=== PATIENT | female | born 1975 | race Caucasian/White ===

== ENCOUNTER 2016-03-20 13:02 | Emergency (ER) | payer OTHER ==
[2016-03-20 13:07] VITALS: BP 118/87; PULSE 98; RESP 14; TEMP 97.9; O2SAT 99
--- NOTE | 2016-03-20 13:29 | EDPHY ---
H & P Stated Complaint: R hip pain from fall on 03/17 Time Seen by Provider: 03/20/16 13:23 HPI/ROS: CHIEF COMPLAINT: Hip pain HISTORY OF PRESENT ILLNESS: Patient is a 40-year-old female who fell off of her bed 3 days ago and landed on her night stand. Her bed is about 4 feet off of the ground. She has bruising to her right hip and pain to her right inguinal area as well as bruising and pain to her right ankle. She has been ambulatory. She did not think that she could have hurt that bad but her pain is continued for the last 3 days. She states that she was not able to sleep at all last night because of pain. She does not take any blood thinners. REVIEW OF SYSTEMS: Constitutional: denies: chills, fever, recent illness, recent injury EENTM: denies: blurred vision, double vision, nose congestion Respiratory: denies: cough, shortness of breath Cardiac: denies: chest pain, irregular heart rate, lightheadedness, palpitations Gastrointestinal/Abdominal: denies: abdominal pain, diarrhea, nausea, vomiting, blood streaked stools Genitourinary: denies: dysuria, frequency, hematuria, pain Musculoskeletal: See HPI Skin: denies: lesions, rash, jaundice, bruising Neurological: denies: headache, numbness, paresthesia, tingling, dizziness, weakness Hematologic/Lymphatic: denies: blood clots, easy bleeding, easy bruising Immunologic/allergic: denies: HIV/AIDS, transplant EXAM: GENERAL: Well-appearing, well-nourished and in no acute distress. HEAD: Atraumatic, normocephalic. EYES: Pupils equal round and reactive to light, extraocular movements intact, sclera anicteric, conjunctiva are normal. ENT: TMs normal, nares patent, oropharynx clear without exudates. Moist mucous membranes. NECK: Normal range of motion, supple without lymphadenopathy or JVD. LUNGS: Breath sounds clear to auscultation bilaterally and equal. No wheezes rales or rhonchi. HEART: Regular rate and rhythm without murmurs, rubs or gallops. ABDOMEN: Soft, nontender, normoactive bowel sounds. No guarding, no rebound. No masses appreciated. BACK: No CVA tenderness, no spinal tenderness, step-offs or deformities EXTREMITIES: Pain to right inguinal area, bruising to right lateral hip, no deformity or shortening. Pain, bruising and swelling to right ankle. No bony tenderness. Tenderness to dorsal foot. NEUROLOGICAL: Cranial nerves II through XII grossly intact. Normal speech, normal gait. 5/5 strength, normal movement in all extremities, normal sensation PSYCH: Normal mood, normal affect. SKIN: Warm, dry, normal turgor, no visible rashes or lesions. Source: Patient Exam Limitations: No limitations - Personal History LMP (Females 10-55): 8-14 Days Ago Current Tetanus/Diphtheria Vaccine: Yes Current Tetanus Diphtheria and Acellular Pertussis (TDAP): Yes - Medical/Surgical History Hx Asthma: No Hx Chronic Respiratory Disease: No Hx Diabetes: No Hx Cardiac Disease: No Hx Renal Disease: No Hx Cirrhosis: No Hx Alcoholism: No Hx HIV/AIDS: No Hx Splenectomy or Spleen Trauma: No Other PMH: ectopic - Family History Significant Family History: No pertinent family hx - Social History Smoking Status: Former smoker Alcohol Use: Sober Drug Use: None Constitutional: Initial Vital Signs Temperature (C) 36.6 C 03/20/16 13:05 Heart Rate 98 03/20/16 13:05 Respiratory Rate 14 03/20/16 13:05 Blood Pressure 118/87 H 03/20/16 13:05 O2 Sat (%) 99 03/20/16 13:05 O2 Delivery Mode Room Air Allergies/Adverse Reactions: No Known Allergies Allergy (Unverified 03/20/16 13:07) Home Medications: Medication Instructions Recorded oxyCODONE/APAP 5/325 [Percocet 1 - 2 tab PO Q4H PRN #20 tab 03/20/16 5/325 (*)] Medical Decision Making - Diagnostics Imaging: X-ray: Foot x-ray was obtained. I viewed the images myself on the PACS system. My interpretation of the images is: Possible acute foot avulsion fracture. The radiologist interpretation is avulsion fracture. X-ray: Hip x-ray was obtained. I viewed the images myself on the PACS system. My interpretation of the images is: Negative. The radiologist interpretation is negative. ED Course/Re-evaluation: 2:30 p.m. we discussed the x-ray results. The patient is relieved. We have placed her in a cm some boot and I will have her follow up with Podiatry or Orthopedics. She is happy with this plan. We discussed further care and pain management. She is requesting Percocet. Additional verbal discharge instructions given. Differential Diagnosis: Partial list of the Differential diagnosis considered include but were not limited to; foot fracture, hematoma, ankle sprain, pelvic fracture, hip fracture and although unlikely based on the history and physical exam, I also considered DVT, infection. I discussed these differential diagnoses and the plan with the patient as well as the usual and expected course. The patient understands that the diagnosis is provisional and that in medicine we are not always correct and that further workup is often warranted. Usual and customary warnings were given. All of the patient's questions were answered. The patient was instructed to return to the emergency department should the symptoms at all worsen or return, otherwise to followup with the physician as we discussed. - Data Points Medications Given: Discontinued Medications Hydromorphone HCl (Dilaudid) 1 mg IVP EDNOW ONE Stop: 03/20/16 14:06 Last Admin: 03/20/16 14:06 Dose: 1 mg Departure - Departure Disposition: Home, Routine, Self-Care Clinical Impression: Hematoma Foot fracture, right Qualifiers: Encounter type: initial encounter Fracture type: closed Qualifier Code: ( S92.901A) Unspecified fracture of right foot, initial encounter for closed fracture Condition: Fair Instructions: Toe Fracture (ED), Hematoma (ED) Referrals: NONE *PRIMARY CARE P,. [Primary Care Provider] - As per Instructions Reji Ramires MD [Medical Doctor] - As per Instructions Kenny Perdomo DPM [Doctor of Podiatric Medicine] - As per Instructions Prescriptions: oxyCODONE/APAP 5/325 [Percocet 5/325 (*)] 1 - 2 tab PO Q4H PRN #20 tab PRN Reason: Pain, Severe
--- NOTE | 2016-03-20 13:57 | DX ---
Right Ankle, Three Views History: Pain, post trauma. Findings: No acute fracture, effusion, or dislocation is identified. There are small corticated ossic les adjacent to the posterior callus and anterior/superior navicular bone. Impression: Nothing acute identified.
[2016-03-20] MEDS ORDERED: HYDROmorphONE/DILAUDID 1 MG/ML SYR ONE (14:00)
--- NOTE | 2016-03-20 14:00 | DX ---
1. Right Foot , Three Views History: Pain post trauma. Fall. Findings: There is potentially an acute fracture fragment in the soft tissues medial to the hindfoot, medial to the talar head and proximal to the navicular bone. Overall mineralization is normal. There is a small corticated ossicle posterior to the talus. Impression: Potentially an acute avulsion fragment along the medial hindfoot. 2. Right Hip , 2 views History: Pain post trauma. Fall. Findings: The femoral head is well rounded and normally located. No fracture or dislocation is identi fied. The SI joints, pubic symphysis and left hip look grossly normal. Impression: Nothing acute identified.
[2016-03-20] MEDS ORDERED: HYDROmorphONE/DILAUDID 1 MG/ML SYR IVP ONE (14:05)
== END 2016-03-20 14:57 | disposition home or self-care (01) ==
DX: S92.901A Unspecified fracture of right foot, initial encounter for closed fracture (principal); S70.01XA Contusion of right hip, initial encounter; Z87.891 Personal history of nicotine dependence; W06.XXXA Fall from bed, initial encounter
CPT/HCPCS: 96374; J1170; L4386

== ENCOUNTER → 2016-03-27 | Outpatient (CLI) | payer OTHER ==
--- NOTE | 2016-03-27 14:13 | DX ---
AP Supine Pelvis, at 12:40 p.m. Clinical History: 40-year-old female with right-sided groin pain after falling out of a bed on Dece er 2015 with pain that has been getting worse. ICD-10 Diagnostic Code: S79.911A. Comparison Study: None. Findings: Bone mineralization is preserved. Each femoral head is seated within its acetabulum. There is no acute or subacute fracture or dislocation. The femoral and acetabular joint spaces are normal. The ischial pubic rami are intact. There is a rectangular lucency above the symphysis pubis, likely r epresenting a tampon. There is no symphysis pubis or SI joint diastasis. The sacral arcuate lines are well-contoured. There is mild constipation. Impression: There is no acute or subacute osseous abnormality. If there is further clinical concern regarding the patient's right-sided pain, MR imaging could be co nsidered.
== END ==
LOC: BMCIMAGING 12:43
PROVIDERS: ATTEND Emergency Medicine
DX: R10.32 Left lower quadrant pain (principal)

== ENCOUNTER 2016-04-28 13:51 | Emergency (ER) | payer OTHER ==
[2016-04-28 14:12] VITALS: BP 137/99; PULSE 100; RESP 16; TEMP 98.1; O2SAT 96
--- NOTE | 2016-04-28 14:58 | DX ---
Right second finger - 3 views Indication: Trauma. Dog bite. Comparison: None Findings: The bones are anatomically aligned. No acute fracture or foreign body. Mild diffuse soft ti ssue swelling. Overlying gauze partially obscures the soft tissue planes. Impression: Negative. No acute fracture.
== END 2016-04-28 14:58 | disposition left against medical advice (07) ==
DX: Z53.21 Procedure and treatment not carried out due to patient leaving prior to being seen by health care provider (principal)

== ENCOUNTER → 2016-09-11 | Outpatient (CLI) | payer OTHER | LOC: BMCIMAGING 14:41 | PROVIDERS: ATTEND Family Medicine | DX: M25.551 Pain in right hip (principal) ==